=== PATIENT | female | born 1995 | race Two or more races ===

== ENCOUNTER → 2024-09-23 | Outpatient (CLI) | payer SELFPAY ==
[2024-09-23 17:08] LABS: Beta HCG,Quantitative < 1 mIU/mL (<5.0)
[2024-10-03 06:25] LABS: Estradiol, Ultrasensitive* 182 pg/mL; Progesterone,LC/MS* 30.1 ng/mL
== END | disposition home or self-care (01) ==
LOC: COPL 14:06
PROVIDERS: PCP Family Medicine; Referring Provider Obstetrics & Gynecology Reproductive Endocrinology; Visit Provider Obstetrics & Gynecology Reproductive Endocrinology
DX: Z34.01 Encounter for supervision of normal first pregnancy, first trimester (principal)
CPT/HCPCS: 36415; 82670; 84144; 84702